=== PATIENT | male | born 1970 ===

== ENCOUNTER → 2018-02-25 | Outpatient (CLI) | payer BC ==
[~2018-02-25] MED LIST: AMLODIPINE BESY10 MG PO; CARVEDILOL25 MG PO; FENOFIBRATE145 MG PO; FUROSEMIDE20 MG PO; GLYBURIDE2.5 MG PO; LOSARTAN-HCTZ1 EAC1 PO; METFORMIN HCL1000 MG PO; MULTIVITAMINS1 EAC9; ROSUVASTATIN CA20 MG PO; ULORIC40 MG PO
== END | disposition home or self-care (01) ==
LOC: PPHC 09:06
DX: Z76.0 Encounter for issue of repeat prescription (principal)